=== PATIENT | male | born 1970 | race Caucasian/White ===

== ENCOUNTER 2016-10-20 17:26 | Emergency (ER) | payer MEDICAID ==
[~2016-10-20] VITALS: Ht 175.3 cm; Wt 100.0 kg
[~2016-10-20 17:26] MED LIST: ASPI-1159 PO; GLIP10TA10 PO; METF850T2 PO
[2016-10-20 17:41] VITALS: BP 116/59
[2016-12-13] MEDS ORDERED: GLIP10TA10 PO (18:28)
[2016-12-13] MEDS ORDERED: PREG75CA PO (18:28)
[2016-12-13] MEDS ORDERED: TAMS-11 PO (18:28)
[2016-12-13] MEDS ORDERED: AMLO5TAB88 PO (18:28)
[2016-12-13] MEDS ORDERED: ASPI-1158 PO (18:28)
[2016-12-13] MEDS ORDERED: DIF15 PO (18:31)
== END 2016-10-21 01:03 | disposition left against medical advice (07) ==
LOC: ER 17:26
DX: R05 Cough (principal); Z53.21 Procedure and treatment not carried out due to patient leaving prior to being seen by health care provider

== ENCOUNTER 2016-10-21 10:17 | Emergency (ER) | payer MEDICAID ==
[~2016-10-21] VITALS: Ht 175.3 cm; Wt 220.0 kg
[2016-10-21 11:18] LABS: CLARITY URINE CLOUDY (CLEAR); COLOR URINE YELLOW (YELLOW); GLUCOSE URINE 3+ (NEGATIVE); KETONES URINE NEGATIVE (NEGATIVE); LEUKOCYTE ESTERASE URINE 2+ (NEGATIVE); NITRITE URINE NEGATIVE (NEGATIVE); OCCULT BLOOD URINE 2+ (NEGATIVE); PROTEIN URINE NEGATIVE (NEGATIVE); SPECIFIC GRAVITY URINE 1.034 (1.005-1.030)
[2016-10-21 11:21] LABS: BASOPHILS % 0.3 % (0.0-2.0); EOSINOPHILS % 2.2 % (0.0-5.0); HEMOGLOBIN. 13.4 g/dL (14.0-18.0); LYMPHOCYTES % 17.6 % (20.0-50.0); MEAN CORPUSCULAR HEMOGLOBIN 30.7 pg (28.0-32.0); MEAN CORPUSCULAR VOLUME 89.1 fL (80.0-94.0); MEAN PLATELET VOLUME 11.3 fl (7.4-10.4); MONOCYTES % 5.7 % (2.0-8.0); NEUTROPHILS % 74.2 % (40.0-76.0); PLATELET 108 x1000/uL (130-400); RED BLOOD CELL COUNT 4.38 mill/uL (4.7-6.1); RED CELL DISTRIBUTION WIDTH 12.6 % (11.6-14.6)
[2016-10-21 11:23] LABS: CHLORIDE 100 mEq/L (98-107)
[2016-10-21 11:30] LABS: CARBON DIOXIDE 28 mEq/L (21-32)
[2016-10-21] MEDS ORDERED: INSULIN REGULAR (HUMULIN R) 300UNITS/3ML SUBCUT SCH ×2 (11:45→11:50)
[2016-10-21] MEDS ORDERED: SODIUM CHLORIDE 0.9% 2,000 ML IV ONE (11:45)
[2016-10-21 14:28] VITALS: BP 128/41
[2016-10-21] MEDS ORDERED: SODIUM CHLORIDE 0.9% 1,000 ML IV ONE (14:30)
[2016-10-21] MEDS ORDERED: LEVOFLOXACIN 500MG TABLET PO SCH (16:00)
[2016-12-13] MEDS ORDERED: PREG75CA PO (18:28)
[2016-12-13] MEDS ORDERED: AMLO5TAB88 PO (18:28)
[2016-12-13] MEDS ORDERED: TAMS-11 PO (18:28)
[2016-12-13] MEDS ORDERED: GLIP10TA10 PO (18:28)
[2016-12-13] MEDS ORDERED: ASPI-1158 PO (18:28)
[2016-12-13] MEDS ORDERED: DIF15 PO (18:31)
== END 2016-10-21 15:55 | disposition home or self-care (01) ==
LOC: ER 10:47
DX: N39.0 Urinary tract infection, site not specified (principal); E11.65 Type 2 diabetes mellitus with hyperglycemia; Z87.891 Personal history of nicotine dependence; Z87.442 Personal history of urinary calculi; Z79.82 Long term (current) use of aspirin
CPT/HCPCS: 36415; 80053; 81001; 82962; 83690; 85025; 96360; 96372; 99284; J1815; J7030; Z7610

== ENCOUNTER 2018-07-03 15:57 | Emergency (ER) | payer SELFPAY ==
[~2018-07-03] VITALS: Ht 172.7 cm; Wt 95.4 kg
[~2018-07-03 15:57] MED LIST changes: +AMLO5TAB88 PO; +ASPI-1158 PO; -ASPI-1159 PO; +DIF15 PO; -METF850T2 PO; +TAMS-11 PO
[2018-07-03 16:38] VITALS: BP 118/71
== END 2018-07-03 20:41 | disposition left against medical advice (07) ==
LOC: ER 16:46
DX: Z53.21 Procedure and treatment not carried out due to patient leaving prior to being seen by health care provider (principal)

== ENCOUNTER 2019-05-16 20:58 | Emergency (ER) | payer MEDICAID ==
[~2019-05-16] VITALS: Ht 172.7 cm; Wt 104.0 kg
[2019-05-16] MEDS ORDERED: LORAZEPAM 2MG/ML CPJ IV ONE (22:00)
[2019-05-16] MEDS ORDERED: SODIUM CHLORIDE 0.9% 1,000 ML IV ONE (22:00)
[2019-05-16 23:04] LABS: BASOPHILS % 0.5 % (0.0-2.0); EOSINOPHILS % 1.3 % (0.0-5.0); HEMATOCRIT. 38.7 % (42.0-52.0); HEMOGLOBIN. 13.4 g/dL (14.0-18.0); LYMPHOCYTES % 18.2 % (20.0-50.0); MEAN CORPUSCULAR HEMOGLOBIN 29.6 pg (28.0-32.0); MEAN CORPUSCULAR VOLUME 85.5 fL (80.0-94.0); MEAN PLATELET VOLUME 10.4 fl (7.4-10.4); MONOCYTES % 5.8 % (2.0-8.0); NEUTROPHILS % 74.2 % (40.0-76.0); PLATELET 184 x1000/uL (130-400); RED BLOOD CELL COUNT 4.52 mill/uL (4.7-6.1); RED CELL DISTRIBUTION WIDTH 14.6 % (11.6-14.6)
[2019-05-16 23:12] LABS: INR 0.9
[2019-05-16 23:13] LABS: CHLORIDE 102 mEq/L (98-107)
[2019-05-17] VITALS: BP 178/94
== END 2019-05-17 00:02 | disposition home or self-care (01) ==
LOC: ER 20:58
DX: H53.8 Other visual disturbances (principal); E11.65 Type 2 diabetes mellitus with hyperglycemia; I10 Essential (primary) hypertension; F14.10 Cocaine abuse, uncomplicated; Z88.0 Allergy status to penicillin; Z88.3 Allergy status to other anti-infective agents
CPT/HCPCS: 36415; 80053; 82962; 85025; 85610; 96374; 99283; J2060; J7030

== ENCOUNTER 2025-02-04 10:00 | Emergency (ER) | payer MEDICAID ==
[~2025-02-04] VITALS: Ht 172.7 cm; Wt 122.0 kg
[~2025-02-04 10:00] MED LIST changes: -ASPI-1158 PO; +ASPI-1406 PO; +CALC667C PO; +FAMO20TA8 MT; -GLIP10TA10 PO; +GLIP10TA17 PO; -TAMS-11 PO; +TAMS-54 PO
[2025-02-04 10:02] VITALS: O2SAT 96
[2025-02-04 11:39] LABS: BASOPHILS % 0.3 % (0.0-2.0); EOSINOPHILS % 2.8 % (0.0-5.0); HEMATOCRIT. 31.3 % (42.0-52.0); HEMOGLOBIN. 10.8 g/dL (14.0-18.0); LYMPHOCYTES % 7.8 % (20.0-50.0); MEAN PLATELET VOLUME 9.8 fl (7.4-10.4); MONOCYTES % 8.6 % (2.0-8.0); NEUTROPHILS % 80.5 % (40.0-76.0); PLATELET 129 x1000/uL (130-400); RED BLOOD CELL COUNT 3.29 mill/uL (4.7-6.1); RED CELL DISTRIBUTION WIDTH 15.3 % (11.6-14.6)
[2025-02-04 12:34] LABS: UREA NITROGEN BLOOD 24.0 mg/dL (9-23)
[2025-02-04 12:35] LABS: CREATININE 4.6 mg/dL (0.6-1.3)
[2025-02-04 13:06] VITALS: BP 166/76; PULSE 85; RESP 14; TEMP 36.8; O2SAT 97
== END 2025-02-04 13:14 | disposition home or self-care (01) ==
LOC: ER 10:00
DX: R55 Syncope and collapse (principal); I95.9 Hypotension, unspecified; I12.9 Hypertensive chronic kidney disease with stage 1 through stage 4 chronic kidney disease, or unspecified chronic kidney disease; E11.22 Type 2 diabetes mellitus with diabetic chronic kidney disease; N18.9 Chronic kidney disease, unspecified; Z79.82 Long term (current) use of aspirin; Z99.2 Dependence on renal dialysis; Z88.3 Allergy status to other anti-infective agents; Z88.0 Allergy status to penicillin
CPT/HCPCS: 80048; 85025; 36415; 93005; 99284; Z7610